=== PATIENT | male | born 1975 | race Two or more races ===

== ENCOUNTER 2020-09-15 20:18 | Emergency (ER) | payer SELFPAY ==
[~2020-09-15] VITALS: Ht 170.2 cm; Wt 95.3 kg
--- NOTE | 2020-09-15 20:32 | NUR ---
PT AAOX3. BIBRA 61 FOR ETOH, FOUND SLEEPING IN THE BUSHES OF [employer]. PT ADMITS TO DRINKING. PT PLACED ON MONITOR AND PULSE OX. SAT 99% ON ROOM AIR. VITALS STABLE, CALL LIGHT AT BEDSIDE. UPON ASSESSMENT NO TRAUMA NOTED. SKIN WARM AND INTACT. RR EVEN AND UNLABORED. EMT AT BEDSIDE TO CHECK BG. PT STATED "DO NOT FUCK WITH ME" WHEN ASKED "HOW'S IT GOING JAED."
--- NOTE | 2020-09-15 20:37 | NUR ---
BG 129. VSS.
--- NOTE | 2020-09-15 20:39 | NUR ---
AIR QUALITY SPECIALIST AT BEDSIDE FOR LABS.
[2020-09-15 20:50] LABS: BASOPHILS % (AUTO) 0.7 % (0.0-2.0); EOSINOPHILS % (AUTO) 4.3 % (0.0-6.0); HEMATOCRIT 45 % (39-51); HEMOGLOBIN 14.7 g/dL (13.5-17.5); LYMPHOCYTES # (AUTO) 2.4 /CMM (0.8-4.8); LYMPHOCYTES % (AUTO) 52.2 % (20.0-44.0); MEAN CORPUSCULAR HGB CONC 33 g/dl (31.0-36.0); MEAN CORPUSCULAR VOLUME 94 fL (80-96); MONOCYTES # (AUTO) 0.3 /CMM (0.1-1.30); MONOCYTES % (AUTO) 7.2 % (2.0-12.0); NEUTROPHILS # (AUTO) 1.7 /CMM (1.8-8.9); NEUTROPHILS % (AUTO) 35.6 % (43.0-81.0); PLATELET COUNT (AUTO) 166 /CMM (150-450); WHITE BLOOD COUNT (AUTO) 4.7 K/uL (4.3-11.0)
[2020-09-15 21:16] LABS: CALCIUM, SERUM 8.4 mg/dL (8.5-10.1); CREATININE 0.9 mg/dL (0.6-1.3); POTASSIUM 3.3 mmol/L (3.5-5.1)
[2020-09-15 21:23] LABS: ALBUMIN 3.8 g/dL (3.4-5.0); BILIRUBIN,DIRECT 0.1 mg/dL (0.0-0.2); BILIRUBIN,TOTAL 0.2 mg/dL (0.2-1.0); TOTAL PROTEIN, SERUM 7.8 g/dL (6.4-8.2)
--- NOTE | 2020-09-15 21:37 | NUR ---
Liza hernandez in [facility] - 09/15/20 at 2139 by KEYA CAM GALLO: [phone] ABHIJEET FRANCIS: [phone]
--- NOTE | 2020-09-15 21:39 | NUR ---
SISTER, CAM: [phone] MOM, ABHIJEET: [phone]
--- NOTE | 2020-09-15 22:46 | NUR ---
pt is awake and ambulatory to the bathroom. mom at the bedside and willing to flower buncher or picker the pt. made aware, ok to discharge the pt. Patient discharged to home in stable condition. Written and verbal after care instructions given. Patient and mom verbalized understanding of instruction.
[2020-09-15 22:48] VITALS: BP 129/85
--- NOTE | 2020-09-15 22:55 | NUR ---
Patient discharged to home in stable condition. Written and verbal after care instructions given. Patient verbalizes understanding of instruction. Pt picked up by mother. vss. Ambulatory with steady gait. AAOX4.
== END 2020-09-15 22:55 | disposition home or self-care (01) ==
LOC: ER 20:20
DX: F10.129 Alcohol abuse with intoxication, unspecified (principal); Y90.8 Blood alcohol level of 240 mg/100 ml or more
CPT/HCPCS: 36415; 80048-TC; 80076-TC; 82962-TC; 85025-TC; G0480